=== PATIENT | female | born 1960 | race Caucasian/White ===

== ENCOUNTER 2019-09-22 06:46 | Outpatient (CLI) | payer BC, OTHER ==
[2019-09-22 10:51] LABS: Anion Gap 13 mmol/L (10-20); BUN (Urea Nitrogen) 8 mg/dL (9.8-20.1); Calc. Creatinine Clearance 0 mL/min (70-130); Calcium 9.4 mg/dL (7.8-10.44); Carbon Dioxide 25 mmol/L (22-29); Chloride 103 mmol/L (98-107); Estimated GFR-MDRD 89; Glucose 186 mg/dL (70-105); Potassium 4.1 mmol/L (3.5-5.1); Sodium 137 mmol/L (136-145)
[2019-09-22 18:07] LABS: SARS-CoV-2 MS2 Positive; SARS-CoV-2 N Gene Negative; SARS-CoV-2 S Gene Negative; SARS-CoV-2 orf1ab Negative
== END 2019-09-22 06:47 | disposition home or self-care (01) ==
LOC: LABBT 06:46
PROVIDERS: ATTEND Obstetrics & Gynecology
DX: Z01.818 Encounter for other preprocedural examination (principal); Z11.59 Encounter for screening for other viral diseases; N95.0 Postmenopausal bleeding
CPT/HCPCS: 80048; 87635; 93005; 93010; U0003

== ENCOUNTER 2019-09-26 09:49 | Day surgery (SDC) | payer BC ==
[2019-09-22 08:40] VITALS: BMI 47.7
[2019-09-22 10:22] LABS: Hemoglobin 13.8 g/dL (12.0-16.0); Mean Corpuscular HGB CONC 34.6 g/dL (32.0-36.0); Mean Corpuscular Hemoglobin 28.4 pg (27.0-31.0); Mean Corpuscular Volume 82.1 fL (78.0-98.0); Mean Platelet Volume 8.4 fL (7.4-10.4); Platelet Count 155 thou/uL (130-400); RBC Distribution Width 13.8 % (11.5-14.5); Red Blood Cell (RBC) Count 4.87 mill/uL (4.20-5.40); White Blood Cell (WBC) Count 5.6 thou/uL (4.8-10.8)
--- NOTE | 2019-09-26 08:18 | HP ---
PREOPERATIVE DIAGNOSIS: Postmenopausal bleeding with endometrial endocavitary polyp. HISTORY OF PRESENT ILLNESS: Ms. Quintero is a 59-year-old 2, para 0, AB 2, who was referred in June for postmenopausal bleeding with a benign endometrial biopsy. She was found to have a slightly thickened endometrium with ultrasound findings as well as EMB at Dr. Hill's consistent with endometrial polyp. Because of the patient's morbid obesity, postmenopausal state, and diabetes, she felt to be at high risk for occult atypia or carcinoma and decision was made to proceed with hysteroscopy, D and C, and possible future resection. Case was originally scheduled for June was delayed by the COVID-19 outbreak. [employer] HISTORY: As noted negative Pap smear. PAST MEDICAL HISTORY: Significant for hypertension, diabetes, hypothyroidism, and hyperlipidemia. SURGICAL HISTORY: Tonsillectomy and shoulder. ALLERGIES: KEFLEX. MEDICATIONS: 1. Benazepril. 2. Crestor. 3. Furosemide. 4. Glipizide. 5. Synthroid. 6. Metformin. PHYSICAL EXAMINATION: GENERAL: Obese white female, in no acute distress. HEENT: Within normal limits. LUNGS: Clear to auscultation bilaterally. HEART: Regular rate and rhythm. BREASTS: No masses bilaterally. ABDOMEN: Soft, nontender. No rebound or guarding. Vulva without lesions. Vagina without discharge. Cervix, parous. Uterus anteverted, 6-week size. Adnexa, no masses bilaterally. EXTREMITIES: No clubbing, cyanosis, or edema. IMPRESSION: Postmenopausal bleeding, endometrial polyp. PLAN: Hysteroscopy, resection, appropriate antibiotic, and DVT prophylaxis. Job ID: [id number]
[2019-09-26] MEDS ORDERED: Dexamethasone 20 MG/5 ML VIAL ONE (10:07)
[2019-09-26] MEDS ORDERED: Succinylcholine Chloride 20 MG/ML 10 ml SYRINGE FS ONE (10:07)
[2019-09-26] MEDS ORDERED: Ondansetron PF 4 MG/2 ML Vial ONE ×2 (10:07→13:49)
[2019-09-26] MEDS ORDERED: PROPOFOL 200 MG/20 ML VIAL ONE (10:07)
[2019-09-26] MEDS ORDERED: Lidocaine 1% PF 5 ML VIAL ONE (10:07)
[2019-09-26] MEDS ORDERED: Fentanyl 100 MCG/2 ML VIAL ONE ×2 (11:52→13:22)
[2019-09-26] MEDS ORDERED: Clindamycin/D5W 900 mg/50 ml Premix Bag ONE (12:02)
--- NOTE | 2019-09-26 13:15 | OP ---
DATE OF PROCEDURE: 09/26/2019 PREOPERATIVE DIAGNOSIS: Postmenopausal bleeding, suspected endocavitary polyp. POSTOPERATIVE DIAGNOSIS: Postmenopausal bleeding with endocavitary polyp. PROCEDURE PERFORMED: Hysteroscopic resection of polyp with TruClear. ANESTHESIA: Laryngeal mask airway. ESTIMATED BLOOD LOSS: Less than 10 mL. COMPLICATIONS: None. MEDICATIONS: 900 clindamycin preoperatively. OPERATIVE FINDINGS: 1. Pre- and post-sound 9 cm. 2. 2300 mL normal saline in. 3. Less than 100 mL deficit. 4. No evidence of uterine perforation. 5. Approximately 15 mm endocavitary polyp resected. DISPOSITION: Recovery room in good condition. DESCRIPTION OF PROCEDURE: After obtaining appropriate informed consent, the patient was taken to the operating room where anesthesia was achieved without difficulty. She was prepped and draped in dorsal lithotomy in Mina stirrups. Sliding speculum was placed in vagina, cervix was identified, grasped with single-toothed tenaculum at 12 o'clock. The uterus sounded to 9 cm. Serially dilated up to appropriate level for the small TruClear hysteroscope. It was introduced and findings as noted in the operative findings were noted. Because of the very definitive polypoid nature of the mass, the TruClear soft-tissue device was introduced over approximately 20 minutes. The polyp was resected and removed and sent for pathologic analysis. No other abnormalities of the uterine cavity were noted. Bilateral tubal ostia noted. No evidence of perforation noted. The hysteroscope was removed. The patient awakened, extubated, taken to recovery room in good condition. Job ID: [id number]
[2019-09-26] MEDS ORDERED: HYDROcodone/Acetaminophen 5/325 mg Tablet ONE (13:48)
[2019-09-26] MEDS ORDERED: Promethazine HCl 25 MG/ML VIAL ONE (14:08)
== END 2019-09-26 16:18 | disposition home or self-care (01) ==
LOC: SDC 09:49
PROVIDERS: ATTEND Obstetrics & Gynecology
PROC: 0UB98ZX Excision of Uterus, Via Natural or Artificial Opening Endoscopic, Diagnostic (ICD-10-PCS; principal; 2019-09-26)
DX: N84.0 Polyp of corpus uteri (principal); N95.0 Postmenopausal bleeding; E11.9 Type 2 diabetes mellitus without complications; I10 Essential (primary) hypertension; E03.9 Hypothyroidism, unspecified; E28.2 Polycystic ovarian syndrome; E78.5 Hyperlipidemia, unspecified; E66.01 Morbid (severe) obesity due to excess calories; Z68.42 Body mass index [BMI] 45.0-49.9, adult; Z79.84 Long term (current) use of oral hypoglycemic drugs; Z79.899 Other long term (current) drug therapy; Z88.1 Allergy status to other antibiotic agents
CPT/HCPCS: 36415; 85027; 86850; 86900; 86901; 88305; J1100; J2001; J2405; J2550; J2704; J3010; J3490